=== PATIENT | female | born 1980 | race Native Hawaiian/Other Pacific Islander ===

== ENCOUNTER 2016-08-01 12:38 | Emergency (ER) | payer MEDICAID, OTHER ==
[~2016-08-01] VITALS: Ht 162.6 cm; Wt 72.0 kg
[~2016-08-01 12:38] MED LIST: DICL50 PO; NEUR300C PO
[2016-08-01 12:40] VITALS: BP 140/96; PULSE 102; RESP 20; TEMP 98.3; O2SAT 99
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
[2016-08-01] MEDS ORDERED: IBUP800T23 PO (14:23)
[2016-08-01] MEDS ORDERED: ERYTOIN10 RIGHT EYE (14:23)
[2016-08-01] MEDS ORDERED: IBUPROFEN 800 MG TAB PO ONE (14:30)
[2016-08-01] MEDS ORDERED: PROPARACAINE HCL 0.5% OPHT SOLN 15 ML BTL RIGHT EYE ONE (14:30)
== END 2016-08-01 14:55 | disposition home or self-care (01) ==
LOC: NEPK 12:38
DX: S05.01XA Injury of conjunctiva and corneal abrasion without foreign body, right eye, initial encounter (principal); W20.8XXA Other cause of strike by thrown, projected or falling object, initial encounter
CPT/HCPCS: 99283